=== PATIENT | female | born 1965 | race Caucasian/White ===

== ENCOUNTER → 2020-07-31 | Outpatient (CLI) | payer BC | END | disposition home or self-care (01) | LOC: LAB SHORT 12:30 → LAB 12:30 | DX: H65.92 Unspecified nonsuppurative otitis media, left ear (principal) | CPT/HCPCS: 87081 ==

== ENCOUNTER 2022-02-18 08:02 | Day surgery (SDC) | payer BC ==
[~2022-02-18] VITALS: Ht 162.6 cm; Wt 73.1 kg
[2022-02-18] MEDS ORDERED: VITAMIN D310 MC1 (08:59)
[2022-02-18] MEDS ORDERED: OMEP20ER (08:59)
== END 2022-02-18 10:35 | disposition home or self-care (01) ==
LOC: ORSCSDS 08:02
PROVIDERS: Student in an Organized Health Care Education/Training Program
PROC: 0DBP8ZX Excision of Rectum, Via Natural or Artificial Opening Endoscopic, Diagnostic (ICD-10-PCS; principal; 2022-02-18 09:45)
PROC: 0DBN8ZX Excision of Sigmoid Colon, Via Natural or Artificial Opening Endoscopic, Diagnostic (ICD-10-PCS; principal; 2022-02-18 09:45)
PROC: 0DBL8ZX Excision of Transverse Colon, Via Natural or Artificial Opening Endoscopic, Diagnostic (ICD-10-PCS; principal; 2022-02-18 09:45)
PROC: 0DBK8ZX Excision of Ascending Colon, Via Natural or Artificial Opening Endoscopic, Diagnostic (ICD-10-PCS; principal; 2022-02-18 09:45)
PROC: 0DBH8ZX Excision of Cecum, Via Natural or Artificial Opening Endoscopic, Diagnostic (ICD-10-PCS; principal; 2022-02-18 09:45)
DX: Z12.11 Encounter for screening for malignant neoplasm of colon (principal); D12.5 Benign neoplasm of sigmoid colon; D12.0 Benign neoplasm of cecum; D12.3 Benign neoplasm of transverse colon; K63.5 Polyp of colon; E11.9 Type 2 diabetes mellitus without complications; G47.33 Obstructive sleep apnea (adult) (pediatric); Z79.899 Other long term (current) drug therapy; F17.210 Nicotine dependence, cigarettes, uncomplicated
CPT/HCPCS: 82947; 88305; J2704; J7120

== ENCOUNTER 2023-01-22 07:39 | Day surgery (SDC) | payer BC ==
[~2023-01-22] VITALS: Ht 162.6 cm; Wt 77.4 kg
[~2023-01-22 07:39] MED LIST: OMEP20ER; VITAMIN D310 MC1
[2023-01-22 09:32] VITALS: BP 118/87
== END 2023-01-22 09:36 | disposition home or self-care (01) ==
LOC: ORSCSDS 07:39
PROVIDERS: Student in an Organized Health Care Education/Training Program
PROC: 0DBN8ZX Excision of Sigmoid Colon, Via Natural or Artificial Opening Endoscopic, Diagnostic (ICD-10-PCS; principal; 2023-01-22 09:00)
PROC: 0DBK8ZX Excision of Ascending Colon, Via Natural or Artificial Opening Endoscopic, Diagnostic (ICD-10-PCS; principal; 2023-01-22 09:00)
DX: Z86.010 Personal history of colon polyps (principal); D12.5 Benign neoplasm of sigmoid colon; K63.5 Polyp of colon; K21.9 Gastro-esophageal reflux disease without esophagitis; Z79.899 Other long term (current) drug therapy; R73.03 Prediabetes
CPT/HCPCS: 82947; 88305; J2704; J7120

== ENCOUNTER → 2024-01-11 | Outpatient (CLI) | payer BC | LOC: LAB SHORT 11:42 → LAB 11:42 | DX: J03.90 Acute tonsillitis, unspecified (principal) | CPT/HCPCS: 87081 ==

== ENCOUNTER 2024-07-21 14:41 | Emergency (ER) | payer OTHER, BC ==
[~2024-07-21] VITALS: Ht 162.6 cm; Wt 81.7 kg
[2024-07-21 15:28] VITALS: BP 140/95
[2024-07-21] MEDS ORDERED: HYDROcodone 10-APAP 325 TAB PO ONE (16:50)
[2024-07-21] MEDS ORDERED: SULTRIDS PO (16:53)
[2024-07-21] MEDS ORDERED: Ondansetron HCl 2 MG / ML 2ML Vial IV ONE (17:55)
[2024-07-21] MEDS ORDERED: Morphine Sulfate 4 MG/1 ML Injection IV ONE (17:55)
[2024-07-21] MEDS ORDERED: RX Prepack 6 Tabs Oxycodone 5mg UD ONE (18:30)
[2024-07-21] MEDS ORDERED: Percocet 5-3251 EACH PO (18:33)
== END 2024-07-21 18:49 | disposition home or self-care (01) ==
LOC: ER 14:41
DX: S82.64XA Nondisplaced fracture of lateral malleolus of right fibula, initial encounter for closed fracture (principal); K21.9 Gastro-esophageal reflux disease without esophagitis; F17.210 Nicotine dependence, cigarettes, uncomplicated; W01.0XXA Fall on same level from slipping, tripping and stumbling without subsequent striking against object, initial encounter; Z88.0 Allergy status to penicillin
CPT/HCPCS: 73610; 96374; 96375; 99283-25; A9270; J2270; J2405

== ENCOUNTER 2024-07-23 15:56 | Emergency (ER) | payer BC ==
[~2024-07-23] VITALS: Ht 162.6 cm; Wt 81.7 kg
[~2024-07-23 15:56] MED LIST changes: +Percocet 5-3251 EACH PO; +SULTRIDS PO
[2024-07-23 16:08] VITALS: BP 152/97
== END 2024-07-23 18:07 | disposition home or self-care (01) ==
LOC: ER 15:56
DX: S52.514A Nondisplaced fracture of right radial styloid process, initial encounter for closed fracture (principal); W19.XXXA Unspecified fall, initial encounter; Z88.0 Allergy status to penicillin; K21.9 Gastro-esophageal reflux disease without esophagitis; Z79.899 Other long term (current) drug therapy; Z87.891 Personal history of nicotine dependence
CPT/HCPCS: 29125; 73090; 73130; 99283-25